=== PATIENT | female | born 1970 | race Caucasian/White ===

== ENCOUNTER 2018-01-31 08:31 | Inpatient (IN) ==
--- NOTE | 2018-01-30 20:14 | Discharge Summary ---
<Audrey Silva L - Last Filed: 01/30/18 20:11> Date of Encounter: 01/30/18 - Discharge Diagnosis (1) Arthritis of knee, right Priority: Primary Status: Acute (2) Status post total knee replacement, right Priority: Primary Status: Acute (3) HLD (hyperlipidemia) Priority: Secondary Status: Acute Qualifiers: Hyperlipidemia type: pure hypercholesterolemia Qualified Code(s): E78.00 - Pure hypercholesterolemia, unspecified; E78.0 - Pure hypercholesterolemia (4) Tobacco use Priority: Secondary Status: Chronic (5) Obesity Priority: Secondary Status: Chronic Qualifiers: Obesity type: due to excess calories Obesity classification: unspecified obesity classification Serious obesity comorbidity presence: without serious comorbidity Qualified Code(s): E66.09 - Other obesity due to excess calories (6) Lumbar stenosis Priority: Secondary Status: Chronic Qualifiers: Neurogenic claudication status: unspecified Qualified Code(s): M48.061 - Spinal stenosis, lumbar region without neurogenic claudication (7) Chronic pain Priority: Secondary Status: Chronic Comments: Patient takes [place] 7.5 TID - intermittently - Last dose: 12/14/17. Qualifiers: Chronic pain type: other chronic pain Qualified Code(s): G89.29 - Other chronic pain - Hospital Course Hospital course: Ms. Trujillo is a 47 year old female - Time Spent with Patient Total time spent providing and/or coordinating discharge services: - Discharge Medications Home Medications: Aspirin Enteric Coated [Aspirin EC] 325 mg PO BID #20 tablet. 01/30/18 [Rx] OxyCODONE Immed Rel [Roxicodone 5 MG] 5 mg PO Q6HR PRN 7 Days #28 tablet [Rx] ARIPiprazole [Abilify] 2 mg PO HS 01/31/18 [History] Atorvastatin Calcium [Lipitor] 80 mg PO HS 01/31/18 [History] Buspirone HCl [Buspar] 15 mg PO BID 01/31/18 [History] Cetirizine HCl [All Day Allergy] 10 mg PO DAILY 01/31/18 [History] DULoxetine [Cymbalta] 30 mg PO DAILY 01/31/18 [History] Duloxetine HCl [Cymbalta] 60 mg PO HS 01/31/18 [History] Fluticasone Propionate Nasal [Flonase] 2 spr NS DAILY PRN 01/31/18 [History] Omeprazole [PriLOSEC] 20 mg PO DAILY 01/31/18 [History] Rizatriptan Benzoate [Maxalt] 10 mg PO AD PRN 01/31/18 [History] Topiramate 50 mg PO BID 01/31/18 [History] Varenicline Tartrate [Chantix Starting Month ] 1 mg PO BID 01/31/18 [History] Allergies/Adverse Reactions: 3 Allergy/AdvReac Type Severity Reaction Status Date / Time No Known Allergies Allergy Verified 01/31/18 09:01 Primary care physician: NATANAEL La - Patient Status Disposition: Home Health Service Condition: Good - Discharge Instructions Follow Up With: Lilliana Tafoya CNP [Primary Care Provider] - Additional Instructions: Discharge Instructions: Total Knee Replacement Please call [facility] ([phone]), your Primary Care Physician, or report to the Emergency Room if you have any of the following symptoms: Nausea, vomiting, fever greater that 101.5, swelling, chest pain, shortness of breath, increased pain/redness/drainage/odor for your incision site, numbness/ tingling, or any other concerning symptoms. ACTIVITY:Weight-bearing as tolerated. You may progress off support (crutches or walker) as tolerated. MEDICATIONS: Upon discharge resume your home medications. Take all the medications as prescribed. Take a stool softener if taking narcotic pain medications. Stool softeners are only effective if you drink enough fluids. Drink 6-8 glass of water or fluids a day, unless this is not allowed for another health problem. Despite using stool softeners, if you haven't had a bowel movement in 3 days, please switch to a gentle laxative. Gentle laxatives are sold over the counter. You should have a bowel movement within 24 hours, if not call the office. You will be discharged from the hospital with a prescription for pain medication. You are encouraged to decrease the use of narcotic pain medication as tolerated. Should you require a refill, please call the office. [facility] prescribes narcotic pain medication for only 4-6 weeks after surgery. If you require pain medication beyond this time period, you may be referred to your Primary Care Physician or to the Pain Clinic for further evaluation. Plan ahead for refills on pain medication as many narcotics either need to be picked up at the office or mailed. It is best to call 48-72 hours in advance of needing a prescription refill so you don't run out of medication. To help control the post-operative pain, you may take NSAIDs (Aleve,Advil, Motrin, Ibuprofen, Naprosyn) or Tylenol as prescribed on the bottle in addition to the pain medication. ANTICOAGULATION (blood thinners): Continue your Aspirin, Lovenox or Coumadin as prescribed to help prevent a blood clot in the leg or in the lungs. As long as your incision remains dry and you tolerate the NSAIDs (Aleve, Advil, Motrin, ibuprofen, naprosyn), it is OK to use the NSAIDS while you are taking your anticoagulation medication. Should your incision start to drain, stop the NSAID and contact our office. Common symptoms of blood clot in the legs include: localized pain, swelling, calf tenderness, redness or discoloration of the skin. Blood clot in the lung symptoms include: shortness of breath, rapid pulse, sweating, and chest pain that worsens with deep breathing, coughing up blood, lightheadedness, feelings of anxiety. If you experience any of these symptoms notify your physician immediately, go to the emergency room, or if having trouble breathing, call 911. WOUND CARE: Leave the dressing on for 7 to 10days. You may change the dressing if it becomes saturated greater than 50%. Do not get the dressing wet at anytime. Wash your hands with antibacterial soap, rinse and dry prior to any wound care. If you have meghan the visiting nurse or rehab facility can remove the stapes 10-14 days after surgery and place steri-strips across the wound. Leave the steri-strips in place until they fall off on their won. You may let water from the shower run on top of the steri-strips. If you do not have a visiting nurse or rehab facility, you will need to return to the office at 10-14 days for the meghan to be removed. If you have itching or redness around the dressing call the office. FOLLOW-UP: Please follow up with your surgeon in the orthopedic clinic in 4 weeks from the day of surgery. If you have meghan that need to be removed, you will need to come back to the office in 10-14 days from the day of surgery. <Jose RafaelJerardo - Last Filed: 02/02/18 10:35> Orders not resulted at time of discharge: Pending orders 01/31/18 00:01 XR knee RT limited 1-2V [XR] Routine H/H [Hemoglobin and Hematocrit] [HEME] Routine Date of Encounter: 02/02/18 Time of Encounter: 10:34 - Discharge Diagnosis (1) Obesity (BMI 35.0-39.9 without comorbidity) Priority: Secondary Status: Chronic (2) Arthritis of knee, right Priority: Primary Status: Chronic (3) Status post total knee replacement, right Priority: Primary Status: Acute (4) HLD (hyperlipidemia) Priority: Secondary Status: Chronic Qualifiers: Hyperlipidemia type: pure hypercholesterolemia Qualified Code(s): E78.00 - Pure hypercholesterolemia, unspecified; E78.0 - Pure hypercholesterolemia (5) Tobacco use Priority: Secondary Status: Chronic (6) Lumbar stenosis Priority: Secondary Status: Chronic Qualifiers: Neurogenic claudication status: unspecified Qualified Code(s): M48.061 - Spinal stenosis, lumbar region without neurogenic claudication (7) Chronic pain Priority: Secondary Status: Chronic Qualifiers: Chronic pain type: other chronic pain Qualified Code(s): G89.29 - Other chronic pain - Hospital Course Hospital course: Ms. Trujillo is a 47 year old female Status post total knee replacementThe patient had an uneventful postoperative course. They received antibiotics and physical therapy and were discharged in stable condition. There will follow-up in the office in 2 weeks. - Time Spent with Patient Total time spent providing and/or coordinating discharge services: Primary care physician: NATANAEL La - Patient Status Functional capacity at discharge: uses cane/walker Overall status at discharge: patient is progressing back to baseline
--- NOTE | 2018-01-30 20:18 | Physician Discharge Referral ---
Home Health/Hosp Referral Info Transfer to: Home Health Provider in Charge Post Discharge: PCP - Diagnosis (1) Arthritis of knee, right Priority: Primary Status: Acute (2) Status post total knee replacement, right Priority: Primary Status: Acute (3) HLD (hyperlipidemia) Status: Acute (4) Tobacco use Status: Chronic (5) Obesity Status: Chronic (6) Lumbar stenosis Status: Chronic (7) Chronic pain Status: Chronic - Respiratory Orders None Smoking Cessation: Smoking cessation has been advised. For more information, call the [place] Tobacco Quit Line at 3-097-WWPY-NOW. - Diet/Nutrition Diet/Nutrition Orders: Regular - Activity Activity Orders: Up ad brandy, Ambulate, Walker - Services Needed Following services are medically necessary services: Nursing, Home Health Aide, Physical Therapy, Occupational Therapy Home Care Orders: HIP Continuity Opsite dressing, leave intact until first post-operative visit. If dressing becomes >50% saturated, contact office, remove dressing and place appropriate dressing in its place. Do not allow for dressing to get wet. Zipline/Jamie in place, plan to remove at post-operative day #14-16. Total Joint Precautions x 6 weeks Apply cold therapy wrap 3-6x/day for 20 minutes at a time. Encourage ambulation throughout the day Use Incentive spirometer 10x/hour. Elevate affected extremity above heart as tolerated. Brace: Wear knee immobilizer x 2 weeks at night.~ - Transfer Medications Prescriptions: OxyCODONE Immed Rel [Roxicodone 5 MG] 5 mg PO Q6HR PRN 7 Days #28 tablet PRN Reason: Severe Pain Aspirin Enteric Coated [Aspirin EC] 325 mg PO BID #20 tablet.dr Home Medications: Albuterol Sulfate [Proair Hfa] 2 puff IH Q4-6H PRN 10/24/16 [History] Atorvastatin [Lipitor] 80 mg PO HS 10/24/16 [History] DULoxetine [Cymbalta] 30 mg PO HS 10/24/16 [History] Omeprazole 20 mg PO DAILY 10/24/16 [History] Albuterol Neb [AccuNeb] 1.25 mg IH QID 11/14/16 [History] Buspirone HCl [Buspar] 03/17/17 [History] DULoxetine [Cymbalta] 03/17/17 [History] Topiramate [Topamax] 03/17/17 [History] Aspirin Enteric Coated [Aspirin EC] 325 mg PO BID #20 tablet. 01/30/18 [Rx] OxyCODONE Immed Rel [Roxicodone 5 MG] 5 mg PO Q6HR PRN 7 Days #28 tablet [Rx] Allergies/Adverse Reactions: 3 Allergy/AdvReac Type Severity Reaction Status Date / Time No Known Allergies Allergy Verified 01/25/18 14:24 Certification: Further, I certify that my clinical findings support that this patient is homebound (i.e. absences from home require considerable and taxing effort and are for medical reasons or mandaeism services or infrequently or short duration when for other reasons) because: Homebound Reason: Patient requires assistance of a person or device to safely leave home, Post-surgery restriction and or conditions limit ability to leave home Attestation: My signature below is to certify that this patient is under my care and that I, or nurse practitioner, or a physician's sales office assistant working with me, has a face-to -face encounter with this patient.
[~2018-01-31 08:31] MED LIST: Famotidine 20 MG/2 ML VIAL IVP ONE; Gabapentin 300 MG CAPSULE PO ONE; Ringers Solution, Lactated 1,000 ML IVC SCH
[2018-01-31] MEDS ORDERED: *HR* FentaNYL (PF) 100 MCG/2 ML VIAL ONE ×2 (08:42→10:48)
[2018-01-31] MEDS ORDERED: *HR* Propofol 200 MG/20 ML VIAL IVP ONE (08:42)
[2018-01-31] MEDS ORDERED: Dexamethasone 4 MG/ML VIAL ONE (08:42)
[2018-01-31] MEDS ORDERED: Lidocaine -MPF 4% 5 ML AMPUL ONE (08:42)
[2018-01-31] MEDS ORDERED: Ondansetron 4 MG/2 ML VIAL ONE (08:42)
[2018-01-31] MEDS ORDERED: *HR* Midazolam HCl 2 MG/2 ML VIAL ONE (08:42)
[2018-01-31] MEDS ORDERED: Lidocaine -MPF 2% 2 ML VIAL ONE (08:42)
[2018-01-31] MEDS ORDERED: Lidocaine -MPF 1% 2 ML VIAL ID ONE (08:48)
[2018-01-31] MEDS ORDERED: Albuterol 2.5 MG/3 ML NEBULIZER IH ONE (08:48)
[2018-01-31] MEDS ORDERED: CeFAZolin Syr 2,000MG/20 ML 2,000 MG/20 ML SYRINGE IVPB ONE (08:48)
--- NOTE | 2018-01-31 09:14 | History & Physical Report ---
Date of Encounter: 01/31/18 Time of Encounter: 09:14 24 Hour HP Update - Instructions Instructions: If the History and Physical is less than 30 days old and was completed prior to A.M. admission and or procedure and has NOT been updated on calendar day of procedure please complete this update prior to performing procedure. - Update Patient reports changes in Medical Condition: No Changes in examination, assessment, or condition: No Changes in Medication: No Preop tests/diagnostics Reviewed: Yes Surgery Remains Indicated: Yes Consent for Planned Operative Procedure(s) Verified: Yes - Pre-Operative Checklist Preoperative Checklist Indicated: No Prophylactic Antibiotic Ordered: Yes Is VTE Prophylaxis Indicated?: Yes
--- NOTE | 2018-01-31 09:16 | Anesthesia Evaluation PreOp ---
Date of Encounter: 01/31/18 Time of Encounter: 09:15 - Past History Planned Operation: Rt TKA Cardiac History: Hyperlipidemia Pulmonary History: Smoker, COPD NEWS WRITER History: Other (Chronic Back Pain, Spinal Cord Stimulator) Other Medical History: Other (Anxiety Depression) Anesthesia History: No Prior Anesthetic Complications : No Alcohol Use: rarely Drug use: none Medications and Allergies Aspirin Enteric Coated [Aspirin EC] 325 mg PO BID #20 tablet. 01/30/18 [Rx] OxyCODONE Immed Rel [Roxicodone 5 MG] 5 mg PO Q6HR PRN 7 Days #28 tablet [Rx] ARIPiprazole [Abilify] 2 mg PO HS 01/31/18 [History] Atorvastatin Calcium [Lipitor] 80 mg PO HS 01/31/18 [History] Buspirone HCl [Buspar] 15 mg PO BID 01/31/18 [History] Cetirizine HCl [All Day Allergy] 10 mg PO DAILY 01/31/18 [History] DULoxetine [Cymbalta] 30 mg PO DAILY 01/31/18 [History] Duloxetine HCl [Cymbalta] 60 mg PO HS 01/31/18 [History] Fluticasone Propionate Nasal [Flonase] 2 spr NS DAILY PRN 01/31/18 [History] Omeprazole [PriLOSEC] 20 mg PO DAILY 01/31/18 [History] Rizatriptan Benzoate [Maxalt] 10 mg PO AD PRN 01/31/18 [History] Topiramate [Topiramate] 50 mg PO BID 01/31/18 [History] Varenicline Tartrate [Chantix Starting Month AMOL] 1 mg PO BID 01/31/18 [History] 3 Allergy/AdvReac Type Severity Reaction Status Date / Time No Known Allergies Allergy Verified 01/31/18 09:01 - Meds/Allergy Pre-op Review Medications Reviewed: Yes Allergies Reviewed: Yes Beta Blockers on Current Med List: No Anesthesia Results - Labs Laboratory Tests 01/25/18 01/25/18 14:26 14:26 Hgb 13.9 Hct 41.8 Plt Count 267 Sodium 139 Potassium 3.6 BUN 16 Creatinine 0.72 - Imaging EKG: report reviewed Anesthesia Exam O2 Sat Height 1.52 m Height 1.52 m Weight 87.09 kg Weight 87.09 kg O2 Sat by Pulse Oximetry 97 Vital Signs Temp Pulse Resp BP Pulse Ox 97.8 F 98 18 118/81 97 01/31/18 08:45 01/31/18 08:45 01/31/18 08:45 01/31/18 08:45 01/31/18 08:45 Height: 5'0 Weight: 192 lbs NPO (# of Hours): MN Pain Scale: 0 - HEENT Pupil (Motor): Pupils equal, EOMI Mallampati: II Teeth: Edentulous Oral Opening: Greater than 3 - NEWS WRITER LOC: Oriented NEWS WRITER Motor: Normal RUE, Normal LUE, Normal RLE, Normal LLE, Normal Face NEWS WRITER Sensory: Normal: RUE, LUE, RLE, LLE, Face - Cardiac Rhythm: Regular Murmur: None JVD: No Carotid Bruit: No - Pulmonary Breath Sounds: bilateral Clear Respiratory Effort: Symmetrical Anesthesia Assess/Plan ASA Score: 3 (COPD Tobacco) Modified Jarrett Scale for Level of Consciousness: Cooperative, oriented, and tranquil Anesthetic Plan: General, Regional Monitoring Plan: Standard Monitors Recovery Plan: PACU (Discussed GA and RA, agrees to proceed)
[2018-01-31] MEDS ORDERED: Bupivacaine/Clonidine Syringe 1 EACH SYRINGE ONE (09:50)
[2018-01-31] MEDS ORDERED: ROPIVACAINE HCL/PF 0.5% 30 ML VIAL ONE (09:50)
[2018-01-31] MEDS ORDERED: Ethanol\\Acetic Acid\\Na Ace\\Ben 1,000 ML IRRIG.SOLN IR ONE (09:54)
[2018-01-31] MEDS ORDERED: *HR* Succinylcholine 200 MG/10 ML VIAL IVP ONE (10:17)
--- NOTE | 2018-01-31 10:18 | Anesthesia Procedures ---
Date of Encounter: 01/31/18 Time of Encounter: 09:15 Procedures: Anesthesia - Nerve Block Procedure Date: 01/31/18 Time: 10:00 Pre-op Diagnosis: Rt Knee OA Surgical Procedure: Rt TKA Checklist: Correct Patient Identifier Correct side: Right Blood Thinner: No Monitor Applied: EKG, BP, Pulse Oximetry Supplemental Oxygen via Nasal Cannula (L/min): 2 Sedation: Versed (mg): 2 Sedation: Fentanyl (mcg): 100 Indication: Post Op Analgesia Pre-op Neuro Deficits: No Block Type: Other (Adductor Canal and IPACK) Catheter placed: No Depth at skin (cm): 5 Sterile Technique: Yes Ultrasound used: Yes Anatomy identified: Yes Visual spread of Local: Yes Neuro Stimulation: No Blood on Needle Aspiration: No Smooth Injection of Local: Yes Pain with Injection of Local: No Prep: Chlorhexadine Needle: 21 x 100 mm Stimuplex Local: 0.25% Bupivicaine w/Clonidine 20 mcg/cc (for IPACK), Ropivacaine (0.5%) Volume (cc): 30 Number of Attempts: 1 Complications: None/effective block Vitals: Vital Signs/O2 Sat/Glucose, Most Current Temp Pulse Resp BP Pulse Ox 01/31/18 09:52 101 18 117/80 99 01/31/18 08:45 97.8 F 98 18 118/81 97
[2018-01-31] MEDS ORDERED: *HR* HYDROmorphone 2 MG TABLET PO PRN (10:28)
[2018-01-31] MEDS ORDERED: *HR* OxyCODONE Immed Rel 5 MG TABLET PO PRN (10:28)
[2018-01-31] MEDS ORDERED: Ondansetron 4 MG/2 ML VIAL IVP ONE (10:28)
[2018-01-31] MEDS ORDERED: Ketorolac 30 MG/ML VIAL ONE (11:12)
--- NOTE | 2018-01-31 11:14 | Orthopedic Operative Note ---
Date of procedure: 01/31/18 Pre-op diagnosis: Right knee arthritis Post-op diagnosis: same Procedure: Procedure: Right Total knee replacement Estimated blood loss: 200 cc Hardware: Metal and polyethylene replacement. Arthrex Femur: 3 Tibia: 3 PS insert: 14 Patella: 34 Exam Under anesthesia: Full flexion and extension no instability Procedural Notes: Grade 4 arthritic changes medial compartment patellofemoral joint. Operative procedure: The patient was brought to the operating room and placed on the operating room table. After general anesthesia was administered the operative knee was examined. Findings were noted in the exam under anesthesia. The operative extremity was prepped and draped in sterile surgical fashion. The patient received IV antibiotics prior to skin incision. A standard midline incision was made centered over the patella. The incision was made through the skin and subcutaneous tissue. A medial parapatellar tendon approach was performed. Care was taken to preserve tissue along the medial aspect of the patella. And to protect the patella tendon. The deep MCL was released off the medial tibia. The infra patella fat pad was excised. Knee was brought into flexion. Patient noted to have grade 4 arthritic changes medial compartment and patellofemoral joint. The entry hole was made for the intramedullary femoral guide. The guide was seated in 6 degrees of valgus. Anterior cut was made followed by the distal cut. The ACL the PCL the medial and the lateral menisci were excised. The tibia was subluxed forward. The entry hole was made for the intramedullary tibial guide. Guide was seated to resect 2 mm off the more abnormal side. The knee was brought into flexion the distal femur was sized to 3. The femoral guide was seated, the anterior cut was made followed by the posterior condylar cut, followed by the chamfer cuts. The finishing guide was seated the box cut was made and the lug holes were drilled. The tibia was sized to a 3, the tibial tray was seated and prepared with the large drill followed by the fin cutter. Trial reduction revealed full extension no varus valgus instability with the appropriate 14 PS Jihan. The patella was everted and cut was made at the level of the insertion of the quadriceps and patella tendon. The patella was sized 34 the guide was seated and the lug holes are drilled. Trial reduction revealed excellent patella tracking. All trial components were removed all bony surfaces were irrigated. The tibia was cemented first followed by the femur. The 14 PS Jihan was seated and the knee was brought into full extension. The patella was cemented and held in place with the patellar holding clamp. After the cement had hardened, the knee sat for 2 minutes with a antibacterial solution. The knee was then irrigated out with 2 L of pulse irrigation. The extensor mechanism was closed with #2 FiberWire suture and #2 PDS suture. The subcutaneous tissue was then irrigated and closed deep with #1 PDS suture superficially with 0 PDS suture and skin was closed with skin meghan. The patient was then placed in a sterile dressing and a postoperative brace extubated and transferred to recovery room in stable condition. Anesthesia: GETA Surgeon: Jerardo Mantilla Was there an assistant field hockey coach present: Yes [employer] Plant Supervisor: Audrey Silva Estimated blood loss (cc): 200 Condition: stable Disposition: PACU
[2018-01-31] MEDS ORDERED: *HR* Morphine 10 MG/ML VIAL ONE (11:29)
[2018-01-31] MEDS: MORPHINE SUL Oral CONC 10 MG/0.5 ML ORAL.SYG SL PRN ×2 (11:50→12:00)
[2018-01-31] MEDS ORDERED: Sennosides 8.6 MG TABLET PO PRN (12:21)
[2018-01-31] MEDS ORDERED: MOM Conc 10 ML UD.LIQ PO PRN (12:21)
[2018-01-31] MEDS ORDERED: traMADol 50 MG TABLET PO PRN (12:21)
[2018-01-31] MEDS ORDERED: Temazepam 15 MG CAPSULE PO PRN (12:21)
[2018-01-31] MEDS ORDERED: *HR* OxyCODONE/APAP 5/325 TABLET PO PRN (12:21)
[2018-01-31] MEDS ORDERED: Fluticasone Propionate Nasal 50 MCG/SPRAY BOTTLE NS PRN (12:21)
[2018-01-31] MEDS ORDERED: Ondansetron 4 MG/2 ML VIAL IVP PRN (12:21)
[2018-01-31] MEDS ORDERED: Ringers Solution, Lactated 1,000 ML IVC SCH (12:21)
[2018-01-31] MEDS ORDERED: (Rizatriptan Benzoate [Maxalt] 10 MG) PO PRN (12:21)
[2018-01-31] MEDS ORDERED: Naloxone 0.4 MG/ML INJ IVP PRN (12:21)
--- NOTE | 2018-01-31 12:23 | Anesthesia Evaluation Post Op ---
Date of Encounter: 01/31/18 Time of Encounter: 12:20 - Vital Signs Vital Signs: Vital Signs/O2 Sat/Glucose, Most Current Temp Pulse Resp BP Pulse Ox 01/31/18 12:04 106 16 142/97 94 01/31/18 11:54 84 16 147/96 96 01/31/18 11:44 97.5 F L 112 16 170/91 100 01/31/18 09:52 101 18 117/80 99 01/31/18 08:45 97.8 F 98 18 118/81 97 - Lungs Lungs: Clear Ascult./Percussion - Airway Airway: Non-obstructed - Cardiovascular Regular Rate - Mental Status Mental Status: Alert & Oriented, Answers Appropriately - Pain Pain Scale: 0 - Nausea Vomiting Nausea Vomiting: Not Present - Hydration Hydration: Ice chips - Discharge PostOp Status: Transfer Patient to floor
[2018-01-31 12:34] LABS: Hematocrit 39.8 % (35.3-44.9); Hemoglobin 13.1 g/dL (11.5-15.4)
[2018-01-31] MEDS: *HR* OxyCODONE Immed Rel 5 MG TABLET PO PRN (14:58)
[2018-01-31] MEDS ORDERED: CeFAZolin Pre 2,000 MG/100 ML 2,000 MG/100 ML BAG IVPB SCH (16:00)
[2018-01-31] MEDS: *HR* Enoxaparin 30 MG/0.3 ML SYRINGE SQ SCH (17:41)
[2018-01-31] MEDS ORDERED: *HR* Enoxaparin 30 MG/0.3 ML SYRINGE SQ SCH (18:00)
[2018-01-31] MEDS: ceFAZolin 2,000 MG in D5% in Water 100 ML IVPB SCH (18:43)
[2018-01-31] MEDS ORDERED: ARIPiprazole 2 MG TABLET PO SCH (21:00)
[2018-02-01] MEDS: Topiramate 25 MG TABLET PO SCH ×2 (00:08→09:03)
[2018-02-01] MEDS: *HR* OxyCODONE Immed Rel 5 MG TABLET PO PRN ×2 (00:08→11:52)
[2018-02-01 01:08] LABS: Hematocrit 35.2 % (35.3-44.9); Hemoglobin 11.7 g/dL (11.5-15.4)
[2018-02-01 01:30] LABS: BUN/Creatinine Ratio 20 (6-26); Blood Urea Nitrogen 13 mg/dL (6-20); Calcium 9.1 mg/dL (8.6-10.3); Carbon Dioxide 30 mEq/L (23-29); Chloride 104 mEq/L (98-107); Glucose 140 mg/dL (70-105); Osmolality,Calculated 294 (280-300); Potassium 3.9 mEq/L (3.5-5.1); Sodium 141 mEq/L (136-145); eGFR For African Americans > 60 (> 60); eGFR For Non-African Americans > 60 (> 60)
[2018-02-01] MEDS: ceFAZolin 2,000 MG in D5% in Water 100 ML IVPB SCH (04:59)
[2018-02-01] MEDS ORDERED: ceFAZolin 2,000 MG in 0.9 % Sodium Chloride 100 ML IVPB SCH (05:00)
[2018-02-01] MEDS: *HR* Enoxaparin 30 MG/0.3 ML SYRINGE SQ SCH (07:24)
[2018-02-01] MEDS ORDERED: Loratadine 10 MG TABLET PO SCH (09:00)
[2018-02-01 12:00] VITALS: BP 122/80
--- NOTE | 2018-02-01 16:11 | Orthopedics Progress Note ---
Date of Encounter: 02/01/18 Time of Encounter: 13:00 - Assessment and Plan (1) Arthritis of knee, right Status: Chronic (2) Status post total knee replacement, right Status: Acute (3) HLD (hyperlipidemia) Status: Chronic Qualifiers: Hyperlipidemia type: pure hypercholesterolemia Qualified Code(s): E78.00 - Pure hypercholesterolemia, unspecified; E78.0 - Pure hypercholesterolemia (4) Tobacco use Status: Chronic (5) Obesity Status: Chronic Qualifiers: Obesity type: due to excess calories Obesity classification: unspecified obesity classification Serious obesity comorbidity presence: without serious comorbidity Qualified Code(s): E66.09 - Other obesity due to excess calories (6) Lumbar stenosis Status: Chronic Qualifiers: Neurogenic claudication status: unspecified Qualified Code(s): M48.061 - Spinal stenosis, lumbar region without neurogenic claudication (7) Chronic pain Status: Chronic Qualifiers: Chronic pain type: other chronic pain Qualified Code(s): G89.29 - Other chronic pain Subjective Principal diagnosis: Right TKR 01/31/18 Interval history: POD#1 Right TKR 01/31/18 Patient seen at bedside. Afebrile, vitals stable Labs reviewed. Stable Pain control: adequate Participating in PT. All questions and concerns addressed. Right Dressing: C/D/I. Denies calf pain. Educated on use of incentive spirometer. Encouraged ambulation and proper hydration. Patient educated on post-operative restrictions and post-operative care. Addressed: ICE and elevation of extremity Changed to Meloxicam 7.5 BID, D/C her Aleve. - RX eRx'ed Discharge plan: Home today, outpatient PT Objective Vital signs: Vital Signs Temp Pulse Resp BP Pulse Ox 02/01/18 11:59 97.8 F 96 18 122/80 100 02/01/18 06:50 98.0 F 98 16 103/70 99 02/01/18 03:24 98.2 F 93 18 122/78 98 01/31/18 22:58 98.1 F 89 18 112/74 98 01/31/18 18:35 98.6 F 86 18 125/85 97 Intake and Output 02/01/18 02/01/18 02/01/18 07:59 15:59 23:59 Intake Total 120 / 120 360 / 360 Output Total 0 / 0 Balance 120 / 120 360 / 360 Intake: Oral 120 / 120 360 / 360 Output: Urine 0 / 0 Other: Meal Lunch Percent of Meal Consumed 100% # Voids 1 Incision: clean and dry - Labs CBC & BMP: 02/01/18 00:37 02/01/18 00:37 Labs: Abnormal lab results Hct 35.2 % (35.3-44.9) L 02/01/18 00:37 Carbon Dioxide 30 mEq/L (23-29) H 02/01/18 00:37 Glucose 140 mg/dL (70-105) H 02/01/18 00:37 - VTE Documentation of Mechanical Device: Venous foot pump, device Consult Discharge Plan - Plan Additional Instructions: Discharge Instructions: Total Knee Replacement Please call [facility] ([phone]), your Primary Care Physician, or report to the Emergency Room if you have any of the following symptoms: Nausea, vomiting, fever greater that 101.5, swelling, chest pain, shortness of breath, increased pain/redness/drainage/odor for your incision site, numbness/ tingling, or any other concerning symptoms. ACTIVITY:Weight-bearing as tolerated. You may progress off support (crutches or walker) as tolerated. MEDICATIONS: Upon discharge resume your home medications. Take all the medications as prescribed. Take a stool softener if taking narcotic pain medications. Stool softeners are only effective if you drink enough fluids. Drink 6-8 glass of water or fluids a day, unless this is not allowed for another health problem. Despite using stool softeners, if you haven't had a bowel movement in 3 days, please switch to a gentle laxative. Gentle laxatives are sold over the counter. You should have a bowel movement within 24 hours, if not call the office. You will be discharged from the hospital with a prescription for pain medication. You are encouraged to decrease the use of narcotic pain medication as tolerated. Should you require a refill, please call the office. [facility] prescribes narcotic pain medication for only 4-6 weeks after surgery. If you require pain medication beyond this time period, you may be referred to your Primary Care Physician or to the Pain Clinic for further evaluation. Plan ahead for refills on pain medication as many narcotics either need to be picked up at the office or mailed. It is best to call 48-72 hours in advance of needing a prescription refill so you don't run out of medication. To help control the post-operative pain, you may take NSAIDs (Aleve,Advil, Motrin, Ibuprofen, Naprosyn) or Tylenol as prescribed on the bottle in addition to the pain medication. ANTICOAGULATION (blood thinners): Continue your Aspirin, Lovenox or Coumadin as prescribed to help prevent a blood clot in the leg or in the lungs. As long as your incision remains dry and you tolerate the NSAIDs (Aleve, Advil, Motrin, ibuprofen, naprosyn), it is OK to use the NSAIDS while you are taking your anticoagulation medication. Should your incision start to drain, stop the NSAID and contact our office. Common symptoms of blood clot in the legs include: localized pain, swelling, calf tenderness, redness or discoloration of the skin. Blood clot in the lung symptoms include: shortness of breath, rapid pulse, sweating, and chest pain that worsens with deep breathing, coughing up blood, lightheadedness, feelings of anxiety. If you experience any of these symptoms notify your physician immediately, go to the emergency room, or if having trouble breathing, call 911. WOUND CARE: Leave the dressing on for 7 to 10days. You may change the dressing if it becomes saturated greater than 50%. Do not get the dressing wet at anytime. Wash your hands with antibacterial soap, rinse and dry prior to any wound care. If you have meghan the visiting nurse or rehab facility can remove the stapes 10-14 days after surgery and place steri-strips across the wound. Leave the steri-strips in place until they fall off on their won. You may let water from the shower run on top of the steri-strips. If you do not have a visiting nurse or rehab facility, you will need to return to the office at 10-14 days for the meghan to be removed. If you have itching or redness around the dressing call the office. FOLLOW-UP: Please follow up with your surgeon in the orthopedic clinic in 4 weeks from the day of surgery. If you have meghan that need to be removed, you will need to come back to the office in 10-14 days from the day of surgery. Referrals: Lilliana Tafoya, [employer] [Primary Care Provider] -
== END 2018-02-01 15:45 | disposition home health service (06) | DRG 470 ==
LOC: SAMDAY 08:31 → 3NENU 12:21
PROVIDERS: ADMIT Orthopaedic Surgery; ATTEND Orthopaedic Surgery